=== PATIENT | female | born 1965 | race Caucasian/White ===

== ENCOUNTER 2017-12-05 16:17 | Inpatient (IN) | payer BC ==
[2017-12-05 17:30] LABS: #Basophils 0.1 thou/uL (0.0-0.2); #Eosinphils 0.4 thou/uL (0.0-0.7); #Lymphocytes 1.4 thou/uL (1.20-3.40); #Monocytes 0.7 thou/uL (0.11-0.59); %Eosinophils 3.8 % (0.0-10.0); %Lymphocytes 13.4 % (21.0-51.0); %Monocytes 6.2 % (0.0-10.0); %Neutrophils 75.7 % (42.0-75.0); Hemoglobin 10.1 g/dL (12.0-16.0); Mean Corpuscular HGB CONC 33.5 g/dL (32.0-36.0); Mean Corpuscular Volume 92.5 fL (78.0-98.0); Mean Platelet Volume 5.7 fL (7.4-10.4); Platelet Count 382 thou/uL (130-400); Red Blood Cell (RBC) Count 3.26 mill/uL (4.20-5.40); White Blood Cell (WBC) Count 10.6 thou/uL (4.8-10.8)
[2017-12-05 17:42] LABS: Anion Gap 13 mmol/L (10-20); BUN (Urea Nitrogen) 40 mg/dL (9.8-20.1); Calc. Creatinine Clearance 0 mL/min (70-130); Calcium 10.8 mg/dL (7.8-10.44); Carbon Dioxide 23 mmol/L (22-29); Chloride 108 mmol/L (98-107); Estimated GFR-MDRD 23; Glucose 97 mg/dL (70-105); Potassium 3.3 mmol/L (3.5-5.1); Sodium 141 mmol/L (136-145)
[2017-12-05 17:46] LABS: CKMB 0.9 ng/mL (0-6.6); Troponin I Less than 0.010 ng/mL (< 0.028)
--- NOTE | 2017-12-05 17:48 | RAD ---
TWO VIEWS OF THE CHEST 12/05/17 COMPARISON: 06/20/16 HISTORY: Dizziness and loss of balance. FINDINGS: Two views of the chest show normal sized cardiomediastinal silhouette. There is no evidence of consol idation, mass, or pleural effusion. The bones are unremarkable. IMPRESSION: No evidence of acute cardiopulmonary disease. POS: [facility]
--- NOTE | 2017-12-05 17:55 | CT ---
NONCONTRAST HEAD CT: 12/05/17 HISTORY: Weakness, dizziness. COMPARISON: 01/14/13. TECHNIQUE: Noncontrast head CT is performed from skull base to skull vertex. FINDINGS: No parenchymal hemorrhage. No extra-axial hematoma. No midline shift. Basilar cisterns are patent. Br ain volume, age appropriate. Cortical cox-white matter differentiation is preserved. The ventricles and sulci are patent and symmetric. Adequate aeration of the sinuses and mastoid air cells. Calvarium is intact. IMPRESSION: No acute intracranial process. POS: [facility]
[2017-12-05 22:00] VITALS: BMI 29.7
[2017-12-05] MEDS ORDERED: Potassium Chloride 20 MEQ TAB PO SCH (22:30)
[2017-12-05] MEDS ORDERED: Metoprolol Tartrate 25 MG TAB PO SCH (22:30)
[2017-12-05] MEDS ORDERED: Amitriptyline HCl 25 MG TAB PO SCH (22:30)
[2017-12-05] MEDS: Sodium Chloride 0.9% 1,000 ML IV SCH (22:33)
[2017-12-06 02:53] LABS: Bilirubin Negative (Negative); Blood, Urine Moderate (Negative); Clarity CLOUDY (Clear); Glucose, Urine (Dipstick) Negative (Negative); Leukocyte Large (Negative); Nitrite Positive (Negative); Protein, Urine (Dipstick) Trace mg/dL (Neg-Trace); Specific Gravity, Urine 1.006 (1.002-1.036); Urobilinogen 0.2 mg/dL (0.2-1.0)
[2017-12-06 02:55] LABS: Bacteria/HPF None Seen HPF (None Seen); Hyaline Casts/LPF 0-3 HYALINE CAST LPF (0-3 Hyaline); Pathc Cast-AUWi Flag 0.29 (0-2.49); RBC/HPF 0-3 HPF (0-3); Squamous Epithelial None Seen HPF (0-3)
[2017-12-06 04:51] LABS: ALT (SGPT) 16 U/L (8-55); AST (SGOT) 11 U/L (5-34); Albumin 2.9 g/dL (3.5-5.0); Alkaline Phosphatase 128 U/L (40-150); Anion Gap 13 mmol/L (10-20); BUN (Urea Nitrogen) 36 mg/dL (9.8-20.1); Bilirubin, Total 0.2 mg/dL (0.2-1.2); Calc. Creatinine Clearance 38 mL/min (70-130); Calcium 9.1 mg/dL (7.8-10.44); Carbon Dioxide 20 mmol/L (22-29); Chloride 112 mmol/L (98-107); Estimated GFR-MDRD 25; Globulin 3.6 g/dL (2.4-3.5); Glucose 110 mg/dL (70-105); Potassium 4.2 mmol/L (3.5-5.1); Protein, Total 6.5 g/dL (6.0-8.3); Sodium 141 mmol/L (136-145)
[2017-12-06] MEDS: Sodium Chloride 0.9% 1,000 ML IV SCH ×3 (06:34→22:06)
[2017-12-06] MEDS ORDERED: Metoprolol Tartrate 25 MG TAB PO SCH (09:00)
[2017-12-06] MEDS ORDERED: Aspirin 325 mg Enteric Coated Tablet PO SCH (09:00)
[2017-12-06] MEDS ORDERED: Clopidogrel Bisulfate 75 MG TAB PO SCH (09:00)
[2017-12-06] MEDS: Ciprofloxacin Lactate/D5W 200 MG in Premix Bag 1 BAG IVPB SCH ×2 (09:26→19:48)
--- NOTE | 2017-12-06 12:08 | HP ---
DATE OF ADMISSION: 12/05/2017 ADMITTING PHYSICIAN: Wilfrid Varma M.D. HISTORY OF PRESENT ILLNESS: The patient is a 52-year-old female who presented herself to the emergen cy room complaining of weakness, dizziness, maybe some weakness to her left hand. She had had a prev ious history of possible CVA, although has never been fully documented. Nonetheless, she is on anti- stroke precautions. She was seen and evaluated in the emergency room, found to have elevated creatin ine and a probable UTI, although she denied any dysuria or hematuria. She did not note any nausea, v omiting, diarrhea or chest pain. She notes her symptoms have improved since her admission. No head injuries have been noted otherwise. noted that she may have had some slurred speech, felt li ke she was dropping things and felt lightheaded and dizzy. Otherwise, no other medical complaints ar e noted. ALLERGIES: She is allergic to CODEINE, PENICILLIN and TETANUS TOXOID. CURRENT MEDICATIONS: Tramadol 50 mg daily, Lyrica 100 mg daily, metoprolol 25 mg daily, amitriptylin e 50 mg daily, Topamax 150 mg daily, Plavix 75 mg daily, atorvastatin 80 mg daily, indomethacin 25 mg daily, pantoprazole 40 mg daily. PAST MEDICAL HISTORY: Positive for problems with stroke, migraine headaches, TIA. PAST SURGICAL HISTORY: Positive for hysterectomy. SOCIAL/PERSONAL HISTORY: She is . She does not smoke nor does she drink alcohol. REVIEW OF SYSTEMS: Gastrointestinal: Negative. Genitourinary: Negative. Cardiovascular: Otherwi se, negative. PHYSICAL EXAMINATION: VITAL SIGNS: Temperature 97.6, BP 150/72, pulse 92, respirations 18. GENERAL: She is alert, active and not appearing in any distress. HEENT: Normocephalic, atraumatic. Sclerae and conjunctivae are clear. Throat clear. NECK: Supple, full range of motion, no masses. LUNGS: Clear. HEART: Reveals a regular rate and rhythm without murmurs, gallops or rubs. ABDOMEN: Soft, nontender. Bowel sounds are present and active. There is no hepatosplenomegaly note d. There is no evidence of any rebound or guarding otherwise noted at this time. EXTREMITIES: Shows no evidence of clubbing, edema or cyanosis. NEUROLOGIC: She is alert and oriented x3. She is able to follow commands. She appears to have norm al magazine designer strength bilaterally. LABORATORY DATA: Her hemoglobin is 10.1, hematocrit 30.1, white blood count 10.6. Admission electro lytes, sodium 141, potassium 3.3, chloride 108, CO2 23, BUN 40, creatinine 2.2. Urinalysis shows too numerous to count WBCs. CT scan of the brain is otherwise normal. IMPRESSION: 1. Urinary tract infection with acute kidney injury. 2. Weakness, possibly related to urinary tract infection. PLAN: Continue current antibiotics. She is on Cipro with IV fluids. We will follow.
[2017-12-06] MEDS ORDERED: traMADol HCl 50 MG TAB PO PRN (13:43)
[2017-12-06] MEDS: Metoprolol Tartrate 25 MG TAB PO SCH ×2 (15:46→19:50)
[2017-12-06] MEDS: traMADol HCl 50 MG TAB PO SCH (19:48)
[2017-12-06] MEDS ORDERED: Amitriptyline HCl 25 MG TAB PO SCH (21:00)
[2017-12-06] MEDS ORDERED: Atorvastatin Calcium 40 MG TAB PO SCH (21:00)
[2017-12-06] MEDS ORDERED: Ondansetron ODT 4 MG TAB PO PRN (23:37)
[2017-12-06] MEDS ORDERED: Ondansetron HCl/PF 4 MG/2 ML Vial IVP PRN (23:38)
[2017-12-06] MEDS: Acetaminophen 325 MG TAB PO PRN (23:49)
[2017-12-07 05:23] LABS: Anion Gap 13 mmol/L (10-20); BUN (Urea Nitrogen) 24 mg/dL (9.8-20.1); Calc. Creatinine Clearance 44 mL/min (70-130); Calcium 8.6 mg/dL (7.8-10.44); Carbon Dioxide 19 mmol/L (22-29); Chloride 112 mmol/L (98-107); Estimated GFR-MDRD 29; Glucose 98 mg/dL (70-105); Potassium 3.6 mmol/L (3.5-5.1); Sodium 140 mmol/L (136-145)
[2017-12-07] MEDS: traMADol HCl 50 MG TAB PO SCH ×3 (06:42→21:06)
[2017-12-07] MEDS: Sodium Chloride 0.9% 1,000 ML IV SCH (06:42)
--- NOTE | 2017-12-07 07:42 | PRG ---
DATE OF SERVICE: 12/07/2017 SUBJECTIVE: Ms. Monique ran a fever last night. Otherwise, she is feeling okay. PHYSICAL EXAMINATION: VITAL SIGNS: T-max is 101.6. She is currently afebrile. BP 113/68. LUNGS: Clear. HEART: Reveals no murmur. ABDOMEN: Soft, nontender, bowel sounds are active. LABORATORY: Creatinine today is 1.8. Her urine culture did grow E. coli sensitive to multiple antib iotics. IMPRESSION: Urinary tract infection. PLAN: 1. She is only on Cipro 200 mg IV, I will switch her to Levaquin 500 mg IV daily. 2. We can Hep-Lock her IV. 3. She is encouraged to get out of bed.
[2017-12-07] MEDS: ASPIRIN 325 MG PO SCH (08:42)
[2017-12-07] MEDS: Clopidogrel Bisulfate 75 MG TAB PO SCH (08:42)
[2017-12-07] MEDS: Metoprolol Tartrate 25 MG TAB PO SCH ×3 (08:43→21:06)
[2017-12-07] MEDS ORDERED: Loperamide HCl 2 MG CAP PO PRN (13:33)
[2017-12-07] MEDS ORDERED: Pepto Bismol Chew TAB PO PRN (13:33)
[2017-12-07] MEDS ORDERED: Diphenoxylate HCl/Atropine Tablet PO SCH (13:45)
[2017-12-07] MEDS: Acetaminophen 325 MG TAB PO PRN (21:06)
[2017-12-08 05:42] LABS: Anion Gap 12 mmol/L (10-20); BUN (Urea Nitrogen) 21 mg/dL (9.8-20.1); Calc. Creatinine Clearance 46 mL/min (70-130); Calcium 8.6 mg/dL (7.8-10.44); Carbon Dioxide 20 mmol/L (22-29); Chloride 108 mmol/L (98-107); Estimated GFR-MDRD 31; Glucose 80 mg/dL (70-105); Potassium 3.6 mmol/L (3.5-5.1); Sodium 136 mmol/L (136-145)
[2017-12-08] MEDS: traMADol HCl 50 MG TAB PO SCH (06:22)
[2017-12-08 07:28] VITALS: BP 147/82; TEMP 100.8
--- NOTE | 2017-12-08 07:53 | PRG ---
DATE OF SERVICE: 12/08/2017 SUBJECTIVE: Ms. Monique is doing better. She is having no complaints. PHYSICAL EXAMINATION: VITAL SIGNS: She has been afebrile for 36 hours. LUNGS: Clear. HEART: Reveals no murmur. LABORATORY: Culture report shows E. coli organism sensitive to Levaquin. IMPRESSION: 1. Urinary tract infection. 2. Acute renal insufficiency, improving. Creatinine today is 1.72. PLAN: She will be able to discharge home today on Levaquin. She will follow up with me in 1-2 weeks .
--- NOTE | 2017-12-08 07:57 | DIS ---
DISCHARGE DIAGNOSES: 1. Urinary tract infection, probable pyelonephritis. 2. Acute kidney injury. ADMITTING PHYSICIAN: Dr. Wilfrid Varma. HOSPITAL SUMMARY: The patient is a 52-year-old female who presented to emergency room complaining of weakness, fatigue, has been noted she seemed to be not acting herself. She was seen and evaluated i n the emergency room, found to have a urinary tract infection. She was placed on IV Cipro. Blood cu ltures and urine cultures were obtained. Blood cultures remained negative. Urine culture revealed E . coli organism. Her kidney function tests improved significantly while in the hospital. She was ev entually switched from IV Levaquin to p.o. Levaquin. She was able to be discharged home. DISCHARGE MEDICATIONS: Tylenol as needed, amitriptyline 50 mg p.o. at bedtime, aspirin 325 daily, at orvastatin 80 Pepto-Bismol daily, Levaquin 500 mg p.o. daily, Plavix 75 mg daily, Toprol 25 mg daily, Tramadol 50 mg daily. Discontinue medicines including Lyrica and indomethacin. She will follow up in 1 week. She was also placed on Bactrim-DS 1 tab p.o. b.i.d.
[2017-12-08] MEDS: Acetaminophen 325 MG TAB PO PRN (09:39)
[2017-12-08] MEDS: Metoprolol Tartrate 25 MG TAB PO SCH (09:41)
[2017-12-08] MEDS: Clopidogrel Bisulfate 75 MG TAB PO SCH (09:41)
[2017-12-08] MEDS: ASPIRIN 325 MG PO SCH (09:41)
== END 2017-12-08 12:15 | disposition home or self-care (01) | DRG 684 ==
LOC: SCSER 16:17 → T4-B 18:50
PROVIDERS: ADMIT Family Medicine; ATTEND Family Medicine
DX: N17.9 Acute kidney failure, unspecified (principal); N12 Tubulo-interstitial nephritis, not specified as acute or chronic; Z86.73 Personal history of transient ischemic attack (TIA), and cerebral infarction without residual deficits
CPT/HCPCS: 36415; 70450; 71046; 80048; 80053; 81003; 81015; 82553; 83735; 84484; 85025; 87077; 87086; 87186; 93005; A4216; J0744; J1956; Q0162

== ENCOUNTER 2017-12-09 13:46 | Observation (INO) | payer BC ==
[2017-12-09 14:21] LABS: #Basophils 0.1 thou/uL (0.0-0.2); #Eosinphils 0.2 thou/uL (0.0-0.7); #Lymphocytes 1.5 thou/uL (1.20-3.40); #Monocytes 0.5 thou/uL (0.11-0.59); #Neutrophils 7.4 thou/uL (1.40-6.50); %Eosinophils 1.7 % (0.0-10.0); %Lymphocytes 15.4 % (21.0-51.0); %Monocytes 4.7 % (0.0-10.0); %Neutrophils 77.2 % (42.0-75.0); Hemoglobin 11.3 g/dL (12.0-16.0); Mean Corpuscular HGB CONC 34.3 g/dL (32.0-36.0); Mean Corpuscular Hemoglobin 30.4 pg (27.0-31.0); Mean Corpuscular Volume 88.5 fL (78.0-98.0); Mean Platelet Volume 5.6 fL (7.4-10.4); Platelet Count 422 thou/uL (130-400); RBC Distribution Width 11.9 % (11.5-14.5); Red Blood Cell (RBC) Count 3.73 mill/uL (4.20-5.40); White Blood Cell (WBC) Count 9.6 thou/uL (4.8-10.8)
[2017-12-09 14:37] LABS: ALT (SGPT) 27 U/L (8-55); AST (SGOT) 27 U/L (5-34); Alkaline Phosphatase 143 U/L (40-150); Anion Gap 17 mmol/L (10-20); BUN (Urea Nitrogen) 20 mg/dL (9.8-20.1); Bilirubin, Total 0.4 mg/dL (0.2-1.2); Calc. Creatinine Clearance 0 mL/min (70-130); Calcium 10.5 mg/dL (7.8-10.44); Carbon Dioxide 18 mmol/L (22-29); Chloride 107 mmol/L (98-107); Estimated GFR-MDRD 32; Glucose 100 mg/dL (70-105); Lipase 39 U/L (8-78); Potassium 3.4 mmol/L (3.5-5.1); Sodium 139 mmol/L (136-145)
[2017-12-09 15:06] LABS: Bilirubin Negative (Negative); Blood, Urine Large (Negative); Clarity Cloudy (Clear); Glucose, Urine (Dipstick) Negative (Negative); Leukocyte Small (Negative); Nitrite Negative (Negative); Protein, Urine (Dipstick) 100 mg/dL (Neg-Trace); Specific Gravity, Urine 1.015 (1.005-1.030); Urobilinogen 0.2 mg/dL (0.2-1.0)
[2017-12-09] MEDS ORDERED: Ondansetron HCl/PF 4 MG/2 ML Vial ONE (15:11)
[2017-12-09 15:14] LABS: Bacteria/HPF 3+ HPF (None Seen); Squamous Epithelial 0-3 HPF (0-3)
--- NOTE | 2017-12-09 15:32 | CT ---
CT ABDOMEN WITHOUT CONTRAST CT PELVIS WITHOUT CONTRAST: Date: 12/09/17 COMPARISON: 03/09/13. HISTORY: Nausea. Vomiting. Urinary tract infection. Pain. TECHNIQUE: Abdomen and pelvic CT are performed without IV contrast. Coronal reformatted images are submitted for interpretation. FINDINGS: ABDOMEN CT: Lung bases are clear. Normal heart size. No significant pericardial fluid. Descending thoracic aorta and abdominal aorta have normal caliber. No periaortic fat stranding. Unremarkable gallbladder. Limited evaluation of the solid organs due to lack of IV contrast. Grossly, no solid organ abnormalit y. No gastrohepatic, retrocrural, or periportal lymphadenopathy. No mesenteric mass, lymphadenopathy, free air, or free fluid. Small ventral abdominal hernia at the l evel of the umbilicus containing mesenteric fat. No bowel herniation. Limited evaluation of the alimentary canal. No evidence of bowel obstruction. Ileocecal junction is n ormal. Normal caliber appendix. Scattered fecal material in a nondistended, nondilated colon. Occasio nal colonic diverticulum. No diverticulitis. There are nonobstructing calcifications in the lower pole of the left kidney, largest calcification b eing 0.8 x 0.5 cm. No evidence of left-sided obstructive uropathy. There is moderate dilatation of th e right intrarenal collecting system and proximal right ureter. There is a 4.0 mm calculus in the pro ximal right ureter. The remainder of the right ureter is decompressed. PELVIC CT: No mass, lymphadenopathy, free air, or free fluid. Decompressed urinary bladder limits evaluation for change. Small focus of air may be due to recent Gilmore catheterization. No lytic or blastic lesions in the osseous structures. IMPRESSION: 1. Moderate right-sided obstructive uropathy secondary to a solitary calculus in the proximal right ureter. 2. There are nonobstructing calcifications in the lower pole of the left kidney. POS: [facility]
[2017-12-09] MEDS ORDERED: Ondansetron HCl/PF 4 MG/2 ML Vial IVP PRN (17:40)
[2017-12-09] MEDS ORDERED: Ondansetron ODT 4 MG TAB SL PRN (17:40)
[2017-12-09 17:52] VITALS: BMI 27.7
[2017-12-09] MEDS: Dextrose 5 %-0.45 % NaCl 1,000 ML IV SCH (18:37)
--- NOTE | 2017-12-09 20:12 | CON ---
DATE OF CONSULTATION: 12/09/2017 DATE OF HOSPITAL ADMISSION: 12/09/2017 REFERRING PHYSICIANS: Dr. Rl Gonzales of the emergency department. Dr. Benito Herrera. PRIMARY CARE PHYSICIAN: Dr. Wilfrid Varma. CHIEF COMPLAINT: 1. Intractable nausea and vomiting with right-sided flank pain. 2. Bilateral flank pain. 3. Acute renal insufficiency. 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 The patient has had subsequent TIA as well. The patient has been feeling ill over the last week or so. On 12/05/2017, she was admitted for what was thought to be weakness a nd dizziness associated with possibly recurrence of her CVA. The patient reported that she had some abdominal pain symptoms, but did not have nausea and vomiting at that time. The patient improved aft er admission here, was ultimately discharged home in good condition on 12/08/2017. She returned to [facility] emergency department today with intractable nausea and vomiting, a complaint of right anterior abd ominal pain symptoms. She reports to me that she has actually been having bilateral back pain sympto ms which are intermittent. She underwent CT scanning of the abdomen and pelvis which revealed a 4 mm stone in the right proximal ureter just below the ureteropelvic junction with proximal chronic appea ring hydronephrosis without evidence of stranding and a large 12 mm stone with satellite stones, pres umably a precursor staghorn in the left kidney. The patient does have a past history of passing a kidney stone many years ago. Ms. Monique reports that she has also been seen for incomplete bladder emptying after hysterectomy was previously evaluated b quincy Cortez many years ago, at least a 5 by her report for that. ALLERGIES: The patient is allergic to the followin. PENICILLIN. 2. TETANUS TOXOID. 3. CODEINE. MEDICATION: Complete home medication list includes the followin. Amitriptyline 50 mg p.o. at bedtime. 2. Aspirin 325 mg p.o. daily. 3. Lipitor 80 mg p.o. daily. 4. Plavix 75 mg p.o. daily. 5. Levofloxacin 500 mg p.o. daily. 6. Metoprolol tartrate 25 mg p.o. daily. 7. Zofran ODT 4 mg q.6. p.r.n. 8. Topamax (topiramate) 100 mg tablets and 50 mg tablets as well taken twice daily for migraine head ache. 9. Tramadol 50 mg p.o. q.8 hours for pain symptoms. 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 She has a history of cigarette smoking from age 15 until 2009. In total, she has abo nj 20 pack years of cigarette smoking mostly less than one half pack per day. She rarely consumes al cohol. REVIEW OF SYSTEMS: Neurologic: The patient reports that she did have dizziness and some other neuro logic symptoms earlier in the week, but these have resolved. Her symptoms now more or less focused o n her GI tract with nausea and vomiting being the principal symptoms. No focal neurologic complaints at this admission. Pulmonary: Negative. Cardiac: No complaints of chest pain, no orthopnea. Gas trointestinal: Nausea and vomiting as noted above with right anterior abdominal discomfort. No comp laints of diarrhea. Genitourinary: Right flank pain, right anterior abdominal pain and left-sided f lank pain, all are positive. Positive history of passed kidney stones. The patient has a history of previous hysterectomy and urinary retention postoperatively after hysterectomy. Musculoskeletal: N egative. PHYSICAL EXAMINATION: VITAL SIGNS: The patient is currently afebrile with temperature 98.2, pulse 89, respirations 14, O2 saturation on room air is 98%, blood pressure is 153/74. HEENT: Extraocular movements are intact. Sclerae are anicteric. Oropharynx is clear. NECK: Supple. LUNGS: Clear to auscultation bilaterally. CARDIOVASCULAR: Regular rate and rhythm without murmur, rub or gallop. BACK: There is positive costovertebral angle tenderness on both sides which is approximately equal o n percussion. ABDOMEN: The patient reports right anterior abdominal discomfort which is approximately at the level of umbilicus, but lateral to it on the right side. This would be consistent with patient's known st one location has a cause. PELVIC: Deferred to the operative suite. EXTREMITIES: Appear within normal limits. There is no clubbing, cyanosis or edema in evidence. NEUROLOGIC: Cranial nerves III through XI appear to be grossly intact and the patient is able to mov e all 4 extremities without any evidence of focal deficits. The patient reports her previous stroke in 2003 resulting in memory issues and problems with motor function on the left side which is resolve d. LABORATORY STUDIES: The patient's white count is nonelevated at 9600. There is a minimal neutrophil shift at 77.2% and a minimal ANC increased at 7400. Hemoglobin is 11.3 with hematocrit of 33.0, ser um chemistry shows the patient's blood urea nitrogen currently at 20 with a creatinine of 1.66. Of n ote, the patient's admission blood urea nitrogen and creatinine on 12/05/2017 were 40 and 2.2 indicat ing that she has had a relative improvement since 12/05/2017, but has had a substantial change overal l from her baseline blood urea nitrogen of 12 and creatinine of 0.77 in 2012. RADIOLOGIC STUDIES: A CT scan of the abdomen and pelvis was performed which shows a 4 mm obstructing calculus in the right UPJ area with proximal hydronephrosis. There is no actual stranding to sugges t an infectious process behind the stone, hydronephrosis appears to be moderately chronic in nature g iven the degree of dilation of the collecting system and is possibly not completely obstructive. On the left side, there is a 12 mm x 8 mm x 5 mm calculus which is ovoid in shape. There is additional stone in the lower pole. The stone appears to be causing reaction in the kidney itself. There is an irregular shaped to the lower pole patient's left kidney, suggesting probable past pyelonephritis or a xanthogranulomatous pyelonephritis process. ASSESSMENT AND PLAN: This is a patient with bilateral kidney stones with bulk of her pain symptoms t ragini on the right side, but she does have reproducible costovertebral angle tenderness on percussion on both sides, resulting in her peculiar presentation. The patient needs to have both stones treated as they are at least partially obstructing on both sides. The right-sided stone appears to be assoc iated with the majority of her present symptoms and probably her nausea and vomiting would be relieve d decompression of the right system. Longer term left-sided stone also needs to be treated. 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 I have made the patient n.p.o. past midnight, tonight an d schedule her for cystoscopy with bilateral stent placement tomorrow as opening maneuver for treatme nt of her stones. exterminator termite treatment of her stones likely will have to be ureteroscopic unless she can be taken off her anticoagulation currently for her history of stroke. Inciting factors for kidney stones would include dehydration on the concurrent use of Topamax and a k idney stone former. Recommend consideration of alternative medications which do not result in hypoci traturia, which is an insighter of kidney stone formation. I note review of the patient's chart that she in fact has hypercalcemia today and further metabolic evaluation and this patient is indicated g iven her past history of kidney stones and recurrent bilateral stones on this visit.
[2017-12-09] MEDS: Tamsulosin HCl 0.4 MG CAP PO SCH (20:16)
[2017-12-09] MEDS: Metoprolol Tartrate 25 MG TAB PO SCH (20:16)
[2017-12-09] MEDS: Topiramate 50 MG TAB PO SCH (20:17)
[2017-12-09] MEDS: ATORVASTATIN CALCIUM 80 MG PO SCH (20:17)
[2017-12-09] MEDS: AMITRIPTYLINE HCL 50 MG PO SCH (20:17)
--- NOTE | 2017-12-09 21:35 | HP ---
Continuation of hospitalization from 12/05/2017. CURRENT CHIEF COMPLAINT: Intractable nausea and vomiting, flank pain. INTERVAL HISTORY AND PHYSICAL CHANGE: The patient was discharged yesterday following improvement in acute kidney injury and urinary tract infection. The patient bounce back to the emergency room following an intractable nausea and vomiting at home, following Zofran, scopolamine patch, trial from 's medications, was unable to keep fluoroquinolone down for UTI continuation of treatment. Presented to the emergency department and found to have bilateral renal calculi, 4 mm stone descending to right urethra; however, left side renal pelvis significantly larger stone is present. Emergency Department consulted Urology, recommended stent placement as the patient's symptoms are on left flank. The patient will undergo stenting process tomorrow morning by Dr. Niels Steve. REVIEW OF SYMPTOMS: No fevers, no chills. Positive fatigue. No cough or congestion, no chest pain, no palpitations. Positive nausea and vomiting. Positive flank pain. Positive dysuria. Positive body aches, joint pain. No confusion, no syncopal episode. No lower extremity edema. PHYSICAL EXAMINATION: VITAL SIGNS: Temperature of 98.2, pulse of 89, oxygen saturation of 98% on room air, and blood pressure 153/74. LABORATORY WORK: Review of laboratory work, white blood cell count of 9.6, hemoglobin of 11.3, platelet count of 422, and neutrophil percent 77. Sodium of 139, potassium of 3.4, CO2 of 18, BUN of 20, creatinine of 1.66 down from 1.72 yesterday, glucose of 100, prior magnesium checked on 12/06/2017 is 2.0, AST of 27, ALT of 27, albumin of 4.0, lipase of 39. Lactic acid of 0.9. Review of microbiology from 12/05/2017, E. coli sensitive to quinolones. No other changes in past medical, social, and surgical history. Exam is unchanged other than left-sided costovertebral angle tenderness. ASSESSMENT AND PLAN: Acute kidney injury, urinary tract infection, renal calculi with mild hydronephrosis. Continuing antibiotic therapy and intractable nausea and vomiting. The patient is on IV fluids. Continuing Zofran for antiemetic coverage. The patient will undergo stenting with Urology tomorrow. If stabilized, will be followed on an outpatient basis for removal of large left-sided renal calculi; however, current passing a renal catheter right side may also be secondary at the same time to help the patient's discharge. We will follow along with Urology tomorrow. Per urology's recommendations may consider titrating down the patient's Topamax that promotes renal calculi formation. MTDD
[2017-12-09] MEDS ORDERED: Promethazine HCl 25 MG/ML VIAL IM PRN (21:37)
[2017-12-09] MEDS ORDERED: Ondansetron ODT 8 MG TAB SL PRN (21:38)
[2017-12-09] MEDS: traMADol HCl 50 MG TAB PO SCH (22:14)
[2017-12-10] MEDS: Dextrose 5 %-0.45 % NaCl 1,000 ML IV SCH ×3 (01:42→15:06)
[2017-12-10] MEDS: AMITRIPTYLINE HCL 50 MG PO SCH ×2 (01:45→19:54)
[2017-12-10] MEDS: Ondansetron HCl/PF 4 MG/2 ML Vial IVP PRN ×2 (01:47→07:44)
[2017-12-10 04:04] LABS: #Eosinphils 0.2 thou/uL (0.0-0.7); #Lymphocytes 1.8 thou/uL (1.20-3.40); #Monocytes 0.6 thou/uL (0.11-0.59); #Neutrophils 7.8 thou/uL (1.40-6.50); %Basophils 0.3 % (0.0-1.0); %Eosinophils 1.8 % (0.0-10.0); %Lymphocytes 17.1 % (21.0-51.0); %Monocytes 5.3 % (0.0-10.0); %Neutrophils 75.6 % (42.0-75.0); Hemoglobin 10.7 g/dL (12.0-16.0); Mean Corpuscular HGB CONC 33.8 g/dL (32.0-36.0); Mean Corpuscular Volume 91.6 fL (78.0-98.0); Mean Platelet Volume 5.8 fL (7.4-10.4); Platelet Count 367 thou/uL (130-400); Red Blood Cell (RBC) Count 3.45 mill/uL (4.20-5.40); White Blood Cell (WBC) Count 10.3 thou/uL (4.8-10.8)
[2017-12-10 04:14] LABS: ALT (SGPT) 20 U/L (8-55); AST (SGOT) 19 U/L (5-34); Albumin 3.4 g/dL (3.5-5.0); Alkaline Phosphatase 123 U/L (40-150); Anion Gap 14 mmol/L (10-20); BUN (Urea Nitrogen) 18 mg/dL (9.8-20.1); Bilirubin, Total 0.3 mg/dL (0.2-1.2); Calc. Creatinine Clearance 51 mL/min (70-130); Calcium 8.8 mg/dL (7.8-10.44); Carbon Dioxide 16 mmol/L (22-29); Chloride 110 mmol/L (98-107); Estimated GFR-MDRD 37; Globulin 4.4 g/dL (2.4-3.5); Glucose 135 mg/dL (70-105); Potassium 3.2 mmol/L (3.5-5.1); Protein, Total 7.8 g/dL (6.0-8.3); Sodium 137 mmol/L (136-145)
[2017-12-10] MEDS: traMADol HCl 50 MG TAB PO SCH ×3 (06:06→19:52)
[2017-12-10] MEDS ORDERED: Potassium Chloride 10 MEQ in Premix Bag 1 BAG IVPB SCH (08:15)
[2017-12-10] MEDS: ASPIRIN 325 MG PO SCH (08:40)
[2017-12-10] MEDS: Metoprolol Tartrate 25 MG TAB PO SCH ×3 (08:40→19:55)
[2017-12-10] MEDS: Clopidogrel Bisulfate 75 MG TAB PO SCH (08:41)
[2017-12-10] MEDS: TOPIRAMATE 50 MG PO SCH (08:42)
[2017-12-10] MEDS ORDERED: Potassium Citrate 10 MEQ TAB PO SCH (09:00)
[2017-12-10] MEDS ORDERED: Iothalamate Meglumine 60% 50 ML VIAL FS ONE (10:00)
[2017-12-10] MEDS ORDERED: Midazolam HCl 2 mg/2 ml Vial ONE (10:11)
[2017-12-10] MEDS ORDERED: Fentanyl 100 MCG/2 ML VIAL ONE (10:11)
--- NOTE | 2017-12-10 10:49 | PRG ---
DATE OF SERVICE: 12/10/2017 DATE OF INITIAL CONSULTATION: 12/09/2017 DATE OF HOSPITAL ADMISSION: 12/09/2017 REFERRING PHYSICIAN: Benito Herrera MD PRIMARY CARE PHYSICIAN: Wilfrid Varma M.D. CHIEF COMPLAINT: 1. Bilateral kidney stones with a clearly obstructing right-sided calculus and intermittent obstruct ion on the left side. 2. Acute renal insufficiency. 3. Intractable nausea and vomiting. 4. Bilateral flank pain. 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 She has an unfortunate history of a stroke in 2003 and a subsequent TIA as well and has been on anticoagulation medications. Over the last week, the patient has been feeling ill. She was admitted to [facility] on 12/05/2017. Subsequ ently, discharged home on 12/08/2017 with weakness and dizziness, which was thought to be possibly a recurrence of a CVA. She ruled out for that and was discharged home in good condition on 12/08/2017, but returned to the emergency department on 12/09/2017 with complaints of abdominal pain, nausea, an d vomiting. The patient had intractable nausea and vomiting and right anterior abdominal pain sympto ms. She underwent CT scanning of the abdomen and pelvis, which revealed a 4 mm stone lodged in the r ight proximal ureter just below the ureteropelvic junction and was also found to have a 12 mm stone w ith satellite stones, presumably a precursor staghorn in the left kidney. The patient was admitted y esterday under the care of Dr. Benito Herrera and had some continued nausea without significant vomi ting, but did develop diarrhea overnight. The patient had been on Cipro and Levaquin prior to admiss ion and reports that that upsets her stomach. The patient also was found to have hypokalemia this mo rning on this morning's labs. PHYSICAL EXAMINATION: VITAL SIGNS: Temperature is 98.8, pulse 97, respirations 18, O2 saturations 97% on room air, blood p ressure is 144/74. GENERAL: This is a pleasant, awake, and alert, GCS 15, white female, in no apparent distress. HEAD, EARS, EYES, NOSE, AND THROAT: Extraocular movements are intact. Sclerae are anicteric. Oroph arynx is clear. NECK: Supple. LUNGS: Clear to auscultation bilaterally. CARDIAC: Regular rate and rhythm without murmur, rub, or gallop. ABDOMEN: Soft and tender. There is maybe increased bowel activity. BACK EXAMINATION: There is bilateral costovertebral angle tenderness on today's exam. EXTREMITIES: Appear within normal limits. NEUROLOGIC: Cranial nerves III-XI appeared to be grossly intact. LABORATORY STUDIES: Patient's laboratories from today showed a white count increasing to 10,300 with a relative neutrophilia with 75.6% neutrophils. ANC increased to 7800. Serum chemistry showed the patient's blood urea nitrogen down to 18 with a current creatinine continuing to be elevated at 1.47. Potassium decreased to 3.2 from 3.4 yesterday and is undergoing supplementation. Microbiology: There are no current specimens. The patient did have an E. coli isolated from her uri ne on 12/05/2017 and this was pansensitive to all tested antibiotics. There are many alternatives to ciprofloxacin at this point. ASSESSMENT: 1. Urinary tract infection history. The patient may be treated with alternative antibiotic coverage . 2. Diarrhea. This may be related to the use of the patient's ciprofloxacin followed by Roxanne. S alma we have alternatives to those drugs, it would seem appropriate to switch her to different covera ge. 3. Hypokalemia. The patient will continue on potassium supplementation, which we started this rosalino ayala. I am recommending potassium citrate since the patient has probable hypocitraturia due to Topamax use. 4. Bilateral kidney stones with bilateral obstruction, elevation of blood urea nitrogen and creatini ne. Findings did demand stent placement, which we performed this morning. The patient will undergo delayed treatment of her kidney stones after acute urinary tract infection symptoms are completely re solved. 5. Diarrhea, uncertain cause. The patient's stool will be sent for Clostridium difficile toxin. Over 35 minutes of consultation assessment time spent on evaluation of this patient today.
[2017-12-10] MEDS ORDERED: Promethazine HCl 25 MG/ML VIAL SLOW IVP PRN (10:54)
[2017-12-10] MEDS ORDERED: Ondansetron HCl/PF 4 MG/2 ML Vial IVP PRN (10:54)
[2017-12-10] MEDS ORDERED: Promethazine HCl 25 MG/ML VIAL IM PRN (10:54)
[2017-12-10] MEDS ORDERED: B & O 30 MG SUPP ONE (10:59)
--- NOTE | 2017-12-10 11:25 | RAD ---
RETROGRADE UROGRAM: DATE: 12/10/17. PROVIDED CLINICAL HISTORY: Stent placement. FINDINGS: Comparison CT examination 12/09/17. Dye Tank Tender spot fluoroscopic image demonstrates known left renal calcu charles. Known right ureteral calculus is not well visualized. Subsequent images demonstrate opacificat ion of the left ureter and left renal collecting system. The calyces appear somewhat blunted. There are areas of relative narrowing involving the proximal to mid left ureter. Subsequent images demons trate wire and ureteral stent placement on the left. On the right, retrograde opacification of the right ureter and right renal collecting system demonstr ates an area of focal narrowing involving the proximal right ureter likely in the region of known jean culus. There is right-sided hydronephrosis. The remainder of the ureter appears unremarkable. IMPRESSION: 1. Left renal calculus and right ureteral calculus. 2. Right hydronephrosis. 3. Nonspecific ureteral narrowing on the left. 4. Left ureteral stent placement. POS: [facility]
[2017-12-10] MEDS ORDERED: PROPOFOL 200 MG/20 ML VIAL ONE (14:55)
[2017-12-10] MEDS ORDERED: Dexamethasone 20 MG/5 ML VIAL ONE (14:55)
[2017-12-10] MEDS ORDERED: Lidocaine 1% PF 5 ML VIAL ONE (14:55)
[2017-12-10] MEDS ORDERED: Ondansetron HCl/PF 4 MG/2 ML Vial ONE (14:55)
--- NOTE | 2017-12-10 17:05 | PRG ---
DATE OF SERVICE: 12/10/2017 HISTORY OF PRESENT ILLNESS: The patient successfully underwent stenting of the ureters pending posto p note possibly bilateral stent placement, retrograde pyelogram during a stent placement, noted right hydronephrosis, urethral narrowing to the left with stent placement on the left. The patient states she has had improved nausea and pain following the surgery, states she has already tried some clear liquids and applesauce, tolerated them well, following IV rehydration overnight. Wants to try some d inner before considering trying more aggressive diet, has been up out of bed to a restroom without di fficulties following postoperative period. PHYSICAL EXAMINATION: VITAL SIGNS: Temperature of 98.6, pulse of 75, respiratory rate 14, oxygen saturation 97% on room ai r, blood pressure 143/66. GENERAL: The patient is alert and oriented, no acute distress. HEENT: Normocephalic, atraumatic. Extraocular movements are intact. Sclerae are clear. Oral mucos a is moist. NECK: Supple, nontender. HEART: Regular rate and rhythm. No murmurs auscultated. LUNGS: Clear to auscultation bilaterally. No rubs or wheezes. No CVA tenderness on exam today post operatively. ABDOMEN: Soft, nontender, positive bowel sounds throughout. EXTREMITIES: Lower extremities without cyanosis or edema. LABORATORY DATA: White blood cell count this a.m. 10.3, hemoglobin 10.7, platelet count of 367, pota ssium 3.2, replaced with potassium citrate. Sodium of 137, creatinine of 1.47, continuing to trend d own, glucose of 135. Magnesium of 2.1, AST of 19, ALT of 20. ASSESSMENT AND PLAN: Intractable nausea and vomiting, urinary tract infection, acute kidney injury, renal calculi with right hydronephrosis. Completing the patient's fluoroquinolone treatment for urin jimmy tract infection. Continue IV fluids overnight for acute kidney injury, continuing to resolve fro m last hospitalization and intractable nausea and vomiting. Replacing patient's potassium regarding her hypokalemia. We will follow up repeat potassium check and titrate the patient's diet once ambula tory, tolerating orals well and stable potassium, will be stable for discharge, likely tomorrow rosalino ayala. The patient will follow up with Urology on outpatient basis for continued treatment of renal jean culi and removal of ureteral stents.
[2017-12-10] MEDS: Acetaminophen 500 MG TAB PO PRN (19:51)
[2017-12-10] MEDS: Tamsulosin HCl 0.4 MG CAP PO SCH (19:52)
[2017-12-10] MEDS: ATORVASTATIN CALCIUM 80 MG PO SCH (19:54)
[2017-12-10] MEDS: Topiramate 50 MG TAB PO SCH (19:56)
[2017-12-11] MEDS: Acetaminophen 500 MG TAB PO PRN ×2 (03:12→11:08)
[2017-12-11] MEDS: traMADol HCl 50 MG TAB PO SCH (03:14)
--- NOTE | 2017-12-11 04:17 | OP ---
DATE OF OPERATION: 12/10/2017 DATE OF HOSPITAL ADMISSION: 12/09/2017 PREOPERATIVE DIAGNOSES: 1. Acute renal failure. 2. Bilateral renal calculi, symptomatic. 3. Chronic appearing hydronephrosis on the right side. 4. Postmenopausal status. POSTPROCEDURE DIAGNOSES: 1. Right ureteropelvic junction calculus, N20.1. 2. Right ureteral stricture below the ureteropelvic junction area measuring approximately 2 cm in [facility]. 3. Urethral stricture disease with resulting urinary retention. 4. Left renal calculus with intrarenal obstruction obstructing all of the calices, N20.0. OPERATIVE PROCEDURES 1. Cystourethroscopy with bilateral stent placement, [id number]. 2. Bilateral retrograde pyelography, [id number]-I. 3. Female urethral stricture dilation, 97443. SURGEON: Niels Steve M.D. ESTIMATED BLOOD LOSS: Less than 5 mL. COMPLICATIONS: None. SPECIMENS: None. BRIEF HISTORY AND INDICATION FOR PROCEDURES: Ms. Marilee Monique is a very pleasant 52-year-old white fem blanca with a distant past history of a kidney stone and recent past history of urinary retention after hysterectomy. The patient was followed about 5 years ago for incomplete bladder emptying, recurrent urinary tract infection and urinary retention with associated incontinence by Dr. Jose Cortez. He has not seen her in over 5 years. Ms. Monique presented on 12/05/2017 with multiple signs and symptoms suggestive of recurrence of her stroke history. 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 She had a repeat TIA-like cameron nt in 2009 and is resultingly on aspirin and Plavix. The patient presented with symptoms not directl y associated with urinary tract on 12/05/2017, was discharged home on 12/08/2017, but returned to the Emergency Department on 12/09/[address] scanning due to new onset abdominal pain complai nts with associated nausea and vomiting. The patient had been started on Levaquin as an outpatient f or apparent urinary tract infection on her 12/05/2017 visit. The patient was found to have a calculu s lodged in the right UPJ or right proximal ureter area with chronic appearing hydronephrosis behind the stone. The patient had no stranding or other inflammatory findings to suggest an actual pyelonep hritis episode. On the other side, a much larger stone and additional lower pole stone was observed. Left-sided collecting system had a 12 mm stone, which was irregular in shape and was seen on multip le cuts. There was an addition left lower pole calculi observed presumptively an early staghorn calc ulus. Patient was admitted to the hospital by Dr. Benito Herrera and was medically stabilized overnight. The patient elected to proceed to the operating room for cystoscopy, retrograde pyelography, and bila teral stent placement. TECHNICAL PROCEDURE: The patient was appropriately identified in the preoperative holding area, info rmed written consent was obtained. The patient was transported to the operative suite and was placed in the supine position. Anesthesia was established using a LMA airway. The patient was repositione d in the supine lithotomy position and prepped and draped in the usual sterile fashion. Cystoscopic evaluation was performed after general pelvic examination. The patient did have anterior vaginal wal l descent and what appeared to be a full bladder. There was a periurethral pallor and redness of the urethral meatus suggestive of postmenopausal atrophic vaginitis with resulting stricture of the uret hra. The patient underwent cystoscopic evaluation after urethral dilation using metallic sounds from a 16-Afghan through 36-Afghan. Cystoscopic evaluation was performed using a 22-Afghan cystoscope [facility] with a 30 degree lens introduced using an obturator. Panendoscopic evaluation of the patient's bladder found no evidence of stone, tumor or other lesion. The left and right ureteric orifices td stalsed, but there was no evidence of efflux from either left or right ureter. We accessed the patie nt's left ureter first. We utilized a 0.035 angled Glidewire and a 5-Afghan Pollack catheter. We ad vanced the Glidewire up the patient's ureter into the left collecting system. A radiodense calculus could be seen by fluorography in the patient's left collecting system. We performed retrograde pyelo graphy examination, which demonstrated the calculus was lodged in the central renal position and obst ructing all of the calices on the left side. We positioned a 4.5 Afghan x 28 cm double-J ureteral st ent in the patient's left ureter after the retrograde pyelography evaluation was performed. This new 4.5 x 28 cm stent was positioned and removed. We then turned our attention to the patient's right side. We obtained access in identical fashion on ce again using a 5-Afghan Pollack catheter and a 0.035 inch angled Glidewire. Glidewire was advanced into the level of the patient's renal pelvis. Careful evaluation found a calculus lodged in the pat ient's ureter. Retrograde evaluation showed a filling defect associated with this calculus. In chaparro tion, we noted the stricture measuring approximately 1-2 cm in length immediately inferior to the are a of the calculus. A chronic appearing hydronephrosis was present above the level of the stricture. This suggests a ureteral stricture as a potential cause of some of the patient's findings including chronic appearing dilation of the right collecting system. We positioned a new 4.5 Afghan x 28 cm do uble-J ureteral stent and the patient's right ureter also removing the string. The patient's bladder was drained, position of stents was fluorographically documented as was the stricture. We noted on retrograde evaluation of the patient's right ureter, a bird-beak type ureteral jet in the upper tract consistent with a narrow stricture. DISPOSITION: The patient was transported to the recovery room, breathing on her own after removal of the LMA airway. SPECIMENS: None. COMPLICATIONS: None evident. DRAINS AND TUBES: The patient has bilateral 4.5 Afghan x 28 cm double-J ureteral stents.
[2017-12-11 04:39] LABS: #Basophils 0.1 thou/uL (0.0-0.2); #Eosinphils 0.2 thou/uL (0.0-0.7); #Monocytes 0.6 thou/uL (0.11-0.59); #Neutrophils 6.2 thou/uL (1.40-6.50); %Basophils 0.8 % (0.0-1.0); %Eosinophils 1.9 % (0.0-10.0); %Lymphocytes 29.9 % (21.0-51.0); %Monocytes 5.9 % (0.0-10.0); %Neutrophils 61.5 % (42.0-75.0); Hemoglobin 9.9 g/dL (12.0-16.0); Mean Corpuscular HGB CONC 34.1 g/dL (32.0-36.0); Mean Corpuscular Hemoglobin 31.8 pg (27.0-31.0); Mean Corpuscular Volume 93.3 fL (78.0-98.0); Mean Platelet Volume 5.9 fL (7.4-10.4); Platelet Count 379 thou/uL (130-400); RBC Distribution Width 13.2 % (11.5-14.5); White Blood Cell (WBC) Count 10.1 thou/uL (4.8-10.8)
[2017-12-11 04:49] LABS: ALT (SGPT) 15 U/L (8-55); AST (SGOT) 17 U/L (5-34); Albumin 3.2 g/dL (3.5-5.0); Alkaline Phosphatase 103 U/L (40-150); Anion Gap 12 mmol/L (10-20); BUN (Urea Nitrogen) 16 mg/dL (9.8-20.1); Bilirubin, Total 0.3 mg/dL (0.2-1.2); Calc. Creatinine Clearance 60 mL/min (70-130); Calcium 8.5 mg/dL (7.8-10.44); Carbon Dioxide 19 mmol/L (22-29); Chloride 110 mmol/L (98-107); Estimated GFR-MDRD 45; Globulin 3.8 g/dL (2.4-3.5); Glucose 89 mg/dL (70-105); Potassium 3.2 mmol/L (3.5-5.1); Sodium 138 mmol/L (136-145)
[2017-12-11] MEDS: ASPIRIN 325 MG PO SCH (08:33)
[2017-12-11] MEDS: Clopidogrel Bisulfate 75 MG TAB PO SCH (08:34)
[2017-12-11] MEDS: Metoprolol Tartrate 25 MG TAB PO SCH ×2 (08:34→15:28)
[2017-12-11] MEDS: TOPIRAMATE 50 MG PO SCH (08:35)
[2017-12-11] MEDS ORDERED: traMADol HCl 50 MG TAB PO SCH (11:00)
[2017-12-11] MEDS: Ondansetron HCl/PF 4 MG/2 ML Vial IVP PRN (11:09)
[2017-12-11 15:54] VITALS: BP 136/78; TEMP 98.6
--- NOTE | 2017-12-11 22:41 | PRG ---
DATE OF SERVICE: 12/11/2017 SUBJECTIVE: Ms. Monique is doing well. She has undergone procedures yesterday for her ureteral c alculus. She had some reported nausea today. She was observed afterwards she had clear liquids. Sh lexie was tolerating well. PHYSICAL EXAMINATION: VITAL SIGNS: Temperature 98.6, BP 136/78. LUNGS: Clear. HEART: Reveals no murmur. ABDOMEN: Soft. IMPRESSION: Right ureteral calculus with hydronephrosis. PROCEDURES: Cystoscopy with bilateral stent placement. She also had a left renal calculus as well. PLAN: She will be discharged home today. Follow up with Dr. Steve per his instructions. Follow up on a p.r.n. basis. Home medicines were resumed. Now she was placed on Zofran 4 mg daily as needed f or nausea.
== END 2017-12-11 18:54 | disposition home or self-care (01) ==
LOC: SCSER 13:46 → 2SW 15:15
PROVIDERS: ADMIT Family Medicine; ATTEND Family Medicine
PROC: 0T788DZ Dilation of Bilateral Ureters with Intraluminal Device, Via Natural or Artificial Opening Endoscopic (ICD-10-PCS; principal; 2017-12-10)
DX: N13.2 Hydronephrosis with renal and ureteral calculous obstruction (principal); N35.9 Urethral stricture, unspecified; R33.9 Retention of urine, unspecified; E87.6 Hypokalemia; Z88.0 Allergy status to penicillin; Z88.5 Allergy status to narcotic agent
CPT/HCPCS: 36415; 74176; 74420; 80053; 81003; 81015; 83605; 83690; 83735; 85025; 87324; 87449; 96361; 96365; 96366; 96367; 96372; 96375; 96376; C1758; C1769; G0378; J1100; J1956; J2001; J2250; J2405; J2550; J2704; J3010; J3480; Q9961

== ENCOUNTER 2018-10-06 14:59 | Outpatient (CLI) | payer BC ==
--- NOTE | 2018-10-06 15:48 | RAD ---
XR Knee Lt 4 View STANDARD: 10/06/2018 12:00 AM CLINICAL INDICATION: Fall with left knee pain COMPARISON: None. FINDINGS: Bones: No acute fracture or subluxation demonstrated. Joints: No joint capsular distention is evident.. Soft Tissue: Normal. IMPRESSION: No acute fracture or subluxation demonstrated.
--- NOTE | 2018-10-06 15:49 | RAD ---
EXAM: XR Elbow Lt 4 View STANDARD DATE: 10/06/2018 12:00 AM INDICATION: Fall COMPARISON: None. FINDING: No acute fracture or subluxation is evident. Radiocapitellar alignment appears within jesse l limits. No joint capsular distention noted. Soft tissues are normal appearing. IMPRESSION:No acute fracture or subluxation demonstrated.
== END 2018-10-06 15:00 | disposition home or self-care (01) ==
LOC: SCSRAD 14:59
PROVIDERS: ATTEND Nurse Practitioner Family
DX: S89.92XA Unspecified injury of left lower leg, initial encounter (principal); S59.902A Unspecified injury of left elbow, initial encounter